=== PATIENT | male | born 1960 | race Hispanic/Latino ===

== ENCOUNTER 2021-11-05 08:11 | Outpatient (CLI) | payer OTHER | END 2021-11-05 08:12 | disposition home or self-care (01) | LOC: CSHWCC 08:11 | PROVIDERS: ATTEND Nurse Practitioner Family | DX: T81.89XD Other complications of procedures, not elsewhere classified, subsequent encounter (principal); R60.0 Localized edema | CPT/HCPCS: 17250; 99203; G0463 ==

== ENCOUNTER 2021-11-26 08:52 | Outpatient (CLI) | payer OTHER | END 2021-11-26 08:53 | disposition home or self-care (01) | LOC: CSHWCC 08:52 | PROVIDERS: ATTEND Nurse Practitioner Family | DX: T81.89XD Other complications of procedures, not elsewhere classified, subsequent encounter (principal); R60.0 Localized edema ==